=== PATIENT | male | born 1970 | race Caucasian/White ===

== ENCOUNTER 2022-08-24 12:04 | Emergency (ER) | payer BC ==
[~2022-08-24] VITALS: Ht 177.8 cm; Wt 93.0 kg
[2022-08-24 12:15] VITALS: BP_SYST 142
[2022-08-24] MEDS ORDERED: NIRM1TAB5 PO (13:50)
[2022-08-24] MEDS ORDERED: OSEL75CA PO (13:50)
[2022-08-24] MEDS ORDERED: ALBMDI INH (13:55)
[2022-08-24 14:20] VITALS: BP_SYST 142
== END 2022-08-24 14:21 | disposition home or self-care (01) ==
LOC: SED 12:04
DX: U07.1 COVID-19 (principal); J40 Bronchitis, not specified as acute or chronic; J10.1 Influenza due to other identified influenza virus with other respiratory manifestations; Z79.899 Other long term (current) drug therapy
CPT/HCPCS: 36415; 71045; 99284